=== PATIENT | male | born 1960 | race African-American/Black ===

== ENCOUNTER → 2022-10-25 15:40 | Outpatient (CLI) | payer BC, SELFPAY ==
--- NOTE | ~2022-10-25 | XR_ITS ---
Clinical Indication: Cough, fever PA and lateral views of the chest: Comparison: None Findings: The lungs are clear, without evidence of focal consolidation or pleural effusion. Cardiome diastinal silhouette is within normal limits. Bones and soft tissues are unremarkable. Impression: Normal chest. Reviewed, dictated and finalized at location . [employer] Impression: Normal chest.
== END ==
PROVIDERS: PCP Nurse Practitioner Family; Visit Provider Nurse Practitioner Family
DX: R05.2 Subacute cough (principal)
CPT/HCPCS: 71046